=== PATIENT | female | born 1975 | race Caucasian/White ===

== ENCOUNTER 2021-01-20 15:32 | Emergency (ER) | payer OTHER, SELFPAY ==
[2021-01-20 16:00] VITALS: BP 148/81; PULSE 82; RESP 16; TEMP 36.2; O2SAT 98; BMI 23.3
--- NOTE | 2021-01-20 16:02 | PC.NURSE ---
called for patient in waiting area and she is not in there
--- NOTE | 2021-01-20 16:18 | ED_ITS ---
HPI - Headache General: Chief Complaint: Headache Stated Complaint: Migraine, Nausea Time Seen by Provider: 01/20/21 15:59 History of Present Illness: HPI Narrative: Patient states he was seen at [facility] on Monday and Monday tested twice for Covid because she had a low- grade fever during week. Patient says she had a headache and was nauseated. Then she went to their clinic and was given Zofran and another shot yesterday most likely Toradol which made her headache go away for 3 hours. Then patient is back with migraine type headache again. Patient states she had migraines when she was younger for age 17 but not had them since. Denies any imbalance dizziness or neurological problems. MD elicited complaint: headache Pertinent past history: migraines Onset (ago): day(s) Onset description: gradually Location: frontal and temporal Severity: mild Quality & Timing: aching Exacerbating factors: light and noise Associated symptoms: Reports nausea, photophobia and sound sensitivity; Deny chest pain, fever(s) or rash Review of Systems Const: Denies: fever(s), chills or body aches Eyes: Denies: change in vision or blurry vision ENMT: Denies: throat pain or nasal congestion Card: Denies: chest pain or dyspnea on exertion Resp: Denies: dyspnea, productive cough or non-productive cough GI: Reports: nausea Musc: Denies: extremity pain Skin/Breast: Denies: rash Neuro: Reports: headache(s) Psych: Denies: anxiety or depression Francisco/Lymph: Denies: easy bruising Physical Exam Const: COMMON NORMALS: no acute distress and patient oriented x3 Eye: DIRECT OPHTHALMOSCOPY: Yes photophobia Neuro: COMMON NORMALS: patient oriented x3 Psych: COMMON NORMALS: mental status grossly normal Course Vital Signs: Vital signs: Vital Signs Temperature 97.1 F L 01/20/21 16:00 Pulse Rate 75 01/20/21 17:05 Respiratory Rate 16 01/20/21 17:05 Blood Pressure 127/74 01/20/21 17:05 Pulse Oximetry 95 01/20/21 17:05 MDM - Headache MDM Narrative: Medical decision making narrative: Patient responded very well to Imitrex. Patient encouraged to establish with primary care provider and go over why these migraines are starting to happen. Also pursue further testing if desired. Patient agreeable to plan. Discharge Plan Discharge Patient Disposition: Home Clinical Impression: Migraine Qualifiers: Migraine type: without aura Status migrainosus presence: without status migrainosus Intractability: intractable Qualified Code(s): G43.019 - Migraine without aura, intractable, without status migrainosus Condition: Stable Prescriptions: New Imitrex 50 mg tablet 50 mg PO Q2H PRN (Reason: migraine headache) Qty: 7 RF: 0 Discharge Orders: Discharge ED (Routine); Ordered 01/20/21 Ordered By: Ildefonso Astudillo Referrals: Torito Mathis DO [Primary Care Provider] - Discharge Diet: Usual diet Discharge Activity: Increase activity as tolerated Patient Instructions: Migraine Headache (ED) Activity Restrictions/Additional Instructions: Follow-up with medical provider as directed. Take medications as prescribed. Return to the ER or your medical provider if condition worsens. Please read and understand discharge instructions. If any questions ask please. Can take 1 imitrex at start of migraine as needed. Coding Level of Care Code ED [place] Administrator for Otoniel Fwd Exam Expanded Problem Focused
[2021-01-20] MEDS: ondansetron 4 MG Tablet PO (16:35)
[2021-01-20] MEDS: SUMAtriptan 6 mg/0.5 mL SDV SUBCUT (16:35)
[2021-01-20 17:05] VITALS: BP 127/74; PULSE 75; RESP 16; O2SAT 95
== END 2021-01-20 17:09 | disposition home or self-care (01) ==
PROVIDERS: Emergency Provider Nurse Practitioner Family; PCP Internal Medicine
DX: G43.019 Migraine without aura, intractable, without status migrainosus (principal)
CPT/HCPCS: 96372; 99283; J3030; Q0162

== ENCOUNTER 2021-01-21 10:49 | Emergency (ER) | payer OTHER, SELFPAY ==
[2021-01-21 11:12] VITALS: BP 144/88; PULSE 77; RESP 15; TEMP 37.2; O2SAT 98; BMI 23.3
--- NOTE | 2021-01-21 11:16 | CT_ITS ---
WS: [id number] CT scan of the head, 01/21/2021 Clinical Data: ongoing h/a not responding to tx Comparison: CT head, 04/23/2010. DLP: 802.[address] scans at [facility] use at least one of these dose optimization techniques: automat ed exposure control; mA and/or kV adjustment per patient size (includes targeted exams where dose is matched to clinical indication); or iterative reconstruction. Findings: The ventricular system is normal without shift. No recent infarct or hemorrhage is seen. There are no abnormal intracerebral masses. The cerebellum and brainstem are not remarkable. Bony windows of the skull and skull base show no fractures or erosions. The mastoid air cells, intern brand al auditory canals, sella turcica, intraorbital contents, and paranasal sinuses are unremarkable. CT/CT head wo con* [id number] Impression: Negative CT scan of the head
[2021-01-21 11:20] VITALS: BP 135/83; PULSE 76; RESP 16; O2SAT 97
--- NOTE | 2021-01-21 11:35 | ED_ITS ---
HPI - Headache General: Chief Complaint: Headache Stated Complaint: migraine Time Seen by Provider: 01/21/21 11:06 History of Present Illness: HPI Narrative: Patient states headache came back this morning. Patient not get prescription filled yesterday. Patient does have some nausea with this. MD elicited complaint: headache Pertinent past history: migraines Onset (ago): hour(s) Onset description: gradually Location: frontal and temporal Severity: mild Associated symptoms: Reports nausea and photophobia; Deny chest pain, fever(s), neck stiffness (Neck tightness) or rash Review of Systems Const: Denies: fever(s), chills or body aches Eyes: Denies: change in vision or blurry vision ENMT: Denies: throat pain or nasal congestion Card: Denies: chest pain or dyspnea on exertion Resp: Denies: dyspnea, productive cough or non-productive cough GI: Reports: nausea Musc: Denies: extremity pain Skin/Breast: Denies: rash Neuro: Reports: headache(s) Psych: Denies: anxiety or depression Francisco/Lymph: Denies: easy bruising Physical Exam Const: COMMON NORMALS: no acute distress, average body habitus and patient oriented x3 HENMT: COMMON NORMALS: normocephalic HEAD & SCALP: normal to inspection and normocephalic FACE & SINUS: normal facial exam Eye: COMMON NORMALS: conjunctivae normal GENERAL EYE: appearance normal, both eyes and all related structures CONJUNCTIVA: Yes conjunctivae normal DIRECT OPHTHALMOSCOPY: Yes photophobia Neck/C-Spine: COMMON NORMALS: no JVD Chest: COMMONS NORMALS: normal inspection of the chest Resp: COMMON NORMALS: normal respiratory effort and clear to auscultation bilaterally AUSCULTATION: clear to auscultation bilaterally Cardio: COMMON NORMALS: no JVD, regular rate and regular rhythm RATE: regular rate RHYTHM: regular rhythm GI: COMMON NORMALS: Normal to inspection, nondistended, normoactive bowel sounds present Extremity: COMMON NORMALS: normal to inspection and full ROM Neuro: COMMON NORMALS: patient oriented x3 Course Vital Signs: Vital signs: Vital Signs Temperature 99 F 01/21/21 11:12 Pulse Rate 76 01/21/21 11:20 Respiratory Rate 16 01/21/21 11:20 Blood Pressure 135/83 01/21/21 11:20 Pulse Oximetry 97 01/21/21 11:20 Discharge Plan Discharge Prescriptions: No Action Imitrex 50 mg tablet 50 mg PO Q2H PRN (Reason: migraine headache) Qty: 7 RF: 0 Coding Level of Care Code ED Supervisor Contact And Service Clerks for Otoniel Ventura
[2021-01-21] MEDS: ondansetron 4 MG Tablet PO (11:40)
[2021-01-21 11:43] LABS: Basophils % 0.6 %; Eosinophils # 0.2 10^3/uL (0.0-0.8); Eosinophils % 2.5 %; Hematocrit 42.6 % (37.0-47.0); Lymphocytes # 0.9 10^3/uL (0.8-4.8); Lymphocytes % 13.6 %; Mean Corpuscular HGB Conc 32.9 g/dL (30.0-36.0); Mean Corpuscular Hemoglobin 28.6 pg (28.0-34.0); Mean Corpuscular Volume 86.9 fL (81-99); Monocytes # 0.6 10^3/uL (0.2-0.9); Monocytes % 9.8 %; Neutrophils # 4.78 10^3/uL (1.8-7.7); Neutrophils % 73.2 %; Nucleated Red Blood Cells % 0 %; Platelet Count 315 10^3/cmm (130-400); Red Cell Distribution Width 12.7 % (12.1-15.1); White Blood Count 6.5 10^3/uL (4.0-10.0)
[2021-01-21 12:02] LABS: Alanine Aminotransferase 18 U/L (0-33); Albumin Level 4.4 g/dL (3.5-5.2); Alkaline Phosphatase 57 IU/L (35-105); Anion Gap 12.3 (5-19); Aspartate Amino Transferase 15 U/L (0-32); Blood Urea Nitrogen 9 mg/dL (6-20); Calcium 9.1 mg/dL (8.5-10.5); Carbon Dioxide 28 mmol/L (22-29); Chloride 102 mmol/L (98-107); Globulin 2.5 g/dL (1.3-4.6); Glomerular Filtration Rate 107.6 mL/min (90-130); Glucose 86 mg/dL (65-115); Osmolality Calculated 284 mOsm/kg (285-295); Potassium 4.3 mmol/L (3.5-5.1); Sodium 138 mmol/L (136-145); Total Bilirubin 0.3 mg/dL (0.15-1.2); Total Protein 6.9 g/dL (6.6-8.7)
[2021-01-21] MEDS: SUMAtriptan 25 mg Tablet 50 MG PO (12:07)
[2021-01-21 12:10] LABS: Add Urine Culture? No; Add Urine Microscopic? YES; Bacteria Urine TRACE /hpf; Bilirubin Urine Neg (Negative); Blood Urine Neg (Negative); Glucose Urine UA Norm (Normal); Ketones Urine Negative (Negative); Leukocyte Esterase Urine Negative (Negative); Mucus Urine TRACE /hpf; Nitrate Urine Negative (Negative); Protein Urine Neg (Negative); Squamous Epithelial Cell Urine 0-4 /hpf (0-5); Urine Appearance SL Hazy (CLEAR); Urine Color Yellow (Yellow); Urobilinogen Urine Neg (Negative); pH Urine 7 (5-7)
[2021-01-21 12:49] VITALS: BP 123/80; PULSE 67; RESP 16; O2SAT 98
== END 2021-01-21 12:51 | disposition home or self-care (01) ==
PROVIDERS: Emergency Provider Nurse Practitioner Family; PCP Internal Medicine
DX: G43.909 Migraine, unspecified, not intractable, without status migrainosus (principal)
CPT/HCPCS: 70450; 80053; 81001; 85025; 99283; Q0162

== ENCOUNTER 2021-01-25 16:33 | Emergency (ER) | payer OTHER, SELFPAY ==
[2021-01-25 16:38] VITALS: PULSE 83; RESP 18; TEMP 36.9; O2SAT 97; BMI 23.2
--- NOTE | 2021-01-25 17:11 | ED_ITS ---
HPI - Headache General: Chief Complaint: Headache Stated Complaint: SEVERE HEADACHE, NUMBNESS, DEHYDRATION Time Seen by Provider: 01/25/21 17:08 History of Present Illness: HPI Narrative: Patient is a 45-year-old female comes to the ED with a headache. Patient was seen here in the ED for same complaint on January 20 and January 21 and diagnosed with a migraine. Patient had a head CT scan on January 21 that showed no acute findings. Today patient continued to have a migraine that she rates currently a 5 out of 10. It is located behind the eyes bilaterally. She has nausea and photophobia. She states she is hardly had any thing to eat or drink today due to the nausea. She also endorses having some right arm numbness and tingling along with slurred speech that occurred prior to arrival to the ED. She says those symptoms have now completely resolved upon arrival. patient has taken sumatriptan and butalbital-acetaminophen caffeine tab and that has not helped either. Patient says her last migraine before this recent onset was back when she was a teenager. Patient does report having 2 recent tick bites and and her PCP she had a tick panel lab performed and it is pending. She is not currently on any doxycycline. Associated symptoms: Reports nausea; Deny chest pain, fever(s), rash or vomiting Review of Systems Const: Denies: fever(s), chills or fatigue Eyes: Reports: photophobia; Denies: change in vision or eye discomfort ENMT: Denies: throat pain, odynophagia, nasal discharge or nasal congestion Card: Denies: chest pain, palpitations, edema, swelling of feet/ankles, dyspnea on exertion or orthopnea Resp: Denies: dyspnea, productive cough or non-productive cough GI: Reports: nausea; Denies: abdominal pain, vomiting, diarrhea, constipation or hematochezia : Denies: flank pain, dysuria or hematuria Musc: Denies: neck pain, back pain or extremity swelling Skin/Breast: Reports: new lesions (Multiple tick bites over the last 2 weeks.); Denies: rash Neuro: Reports: headache(s); Denies: numbness in extremities or weakness in extremities [facility] ED Female Reproductive History: Date of last menstrual period: 01/16/21 Physical Exam Const: COMMON NORMALS: no acute distress, patient oriented x3, healthy appearing and alert GENERAL APPEARANCE: cooperative and comfortable HENMT: COMMON NORMALS: normocephalic HEAD & SCALP: normocephalic MOUTH: Normal oral and palatal mucosa present THROAT: posterior oropharynx normal and uvula midline Neck/C-Spine: COMMON NORMALS: supple GENERAL: Yes normal visual inspection Resp: COMMON NORMALS: normal respiratory effort, No retractions, No use of accessory muscles and clear to auscultation bilaterally AUSCULTATION: clear to auscultation bilaterally Cardio: COMMON NORMALS: regular rate, regular rhythm, S1 normal heart sound present, S2 normal heart sound present, No gallops present (Cardio), No clicks present (Cardio), No murmurs present (Cardio) and Peripheral pulses 2+ throughout RATE: regular rate RHYTHM: regular rhythm HEART SOUNDS: S1 normal heart sound present and S2 normal heart sound present PERIPHERAL PULSES: Peripheral pulses 2+ throughout GI: COMMON NORMALS: Normal to inspection, nondistended, normoactive bowel sounds present, Soft to palpation, non-tender and no masses PALPATION: Yes Soft to palpation : COMMON NORMALS: Yes no CVA tenderness BLADDER/KIDNEY EXAM: Yes no CVA tenderness Back/Pelvis: COMMON NORMALS: no CVA tenderness Extremity: COMMON NORMALS: normal to inspection Neuro: COMMON NORMALS: patient oriented x3, CN's II-XII intact bilaterally, moves all extremities, no focal motor deficits and no sensory deficits noted SENSORIUM/ORIENTATION: Yes alert SENSORY EXAM: Yes extremities (intact) MOTOR EXAM: 5/5 motor strength present throughout Skin: GENERAL SKIN EXAM: dry skin Course ED course: After patient received IV fluids and migraine cocktail her migraine was rated a 1 out of 10. Patient felt comfortable and ready to be discharged home. Vital Signs: Vital signs: Vital Signs Temperature 98.4 F 01/25/21 16:38 Pulse Rate 71 01/25/21 18:59 Respiratory Rate 18 01/25/21 18:59 Blood Pressure 139/79 01/25/21 18:59 Pulse Oximetry 97 01/25/21 16:38 MDM - Headache MDM Narrative: Medical decision making narrative: Patient is a 45-year-old female comes to the ED with migraine. She has been seen here multiple times over the past 5 days for same complaint. Today she is had a headache along with photophobia, nausea and states she has had an episode of right arm numbness and tingling and some slurred speech that resolved before coming to the ED. patient also reports having some recent tick bites and her PCP did a tick panel but she is not currently on doxycycline. Here in the ED patient appears nontoxic and in no acute distress or pain. Her neurological exam shows no deficits. CT of head showed no acute findings. Patient was given IV fluids, Reglan, Toradol, Decadron and Benadryl and her migraine improved greatly. Due to her recurring migraine over the past 5 days I told patient I would place an order with case management for patient to be referred to neurology. Patient diagnosed with a migraine and tick bite and discharged home with a prescription for doxycycline. Return to ED precautions given. Patient was told child support case officer will contact them in a couple days to set up an appointment with neurology. Patient understood and agreed with plan. Imaging Data^: CT Head: Attestation: I personally reviewed and interpreted this imaging study as follows: Radiologist's impression: [place] [address] CT Scan Report Signed Patient: Tabitha Schaffer Unit #: [id number] : 1975 Age/Sex: 45 / F ADM Date: 01/25/21 Loc: ER Room/Bed: Attending Dr: Ordering Provider/Ordering MD: Mic Strickland Date of Service: 01/25/21 Procedure(s): CT head wo con* [id number] Accession Number(s): [id number] Report Number: [id number] PROCEDURE INFORMATION: Exam: CT Head Without Contrast Exam date and time: 01/25/2021 5:27 PM Age: 45 years old Clinical indication: Pain; Speech disturbance; Headache; Additional info: Migraine, with episode of right arm numb, slurred speech TECHNIQUE: Imaging protocol: Computed tomography of the head without contrast. Radiation optimization: All CT scans at this facility use at least one of these dose optimization techniques: automated exposure control; mA and/or kV adjustment per patient size (includes targeted exams where dose is matched to clinical indication); or iterative reconstruction. COMPARISON: CT head wo con* [id number] 01/21/2021 11:57 AM RADIATION DOSE METRICS: Total DLP (mGy-cm): 766.93 FINDINGS: Brain: Normal. No hemorrhage. Unremarkable white matter. No mass effect. Cerebral ventricles: No ventriculomegaly. Paranasal sinuses: Visualized sinuses are unremarkable. No fluid levels. Mastoid air cells: Visualized mastoid air cells are well aerated. Bones/joints: Unremarkable. No acute fracture. Soft tissues: Unremarkable. CT/CT head wo con* [id number] IMPRESSION: No acute intracranial abnormality. Radiation Dose CTDIVOL = (mGy): DLP = 766.93 (mGy-cm) Dictated By: Hakeem Paulino Signed By: Hakeem Paulino Signed Date/Time: 01/25/211817 DD/ 17 Discharge Plan Discharge Patient Disposition: Home Clinical Impression: Migraine Qualifiers: Migraine type: without aura Status migrainosus presence: with status migrainosus Intractability: not intractable Qualified Code(s): G43.001 - Migraine without aura, not intractable, with status migrainosus Tick bite Qualifiers: Encounter type: subsequent encounter Qualified Code(s): W57.XXXD - Bitten or stung by nonvenomous insect and other nonvenomous arthropods, subsequent encounter Condition: Stable Prescriptions: New metoclopramide HCl 10 mg tablet 10 mg PO Q6H PRN (Reason: nausea and vomiting) Qty: 20 RF: 0 doxycycline hyclate 100 mg capsule 100 mg PO BID 10 Days Qty: 20 RF: 0 No Action sumatriptan succinate 100 mg tablet 50 - 100 mg PO .ONSET OF MIGRAINE MDD 200MG RF: 0 ubdfixuieq-mezaeyapzwtjn-dgef 50-325-40 mg tablet 1 tab PO Q6H PRN (Reason: Migraine Headache) RF: 0 naproxen sodium 220 mg Tablet 440 mg PO PRN PRN (Reason: UNKNOWN) RF: 0 ibuprofen 200 mg Tablet 400 mg PO PRN RF: 0 propranolol 20 mg tablet 20 mg PO BID RF: 0 Aleve PM 220-25 mg Tablet 2 tab PO PRN PRN (Reason: UNKNOWN) RF: 0 Motrin Liquid Gels 2 cap PO PRN RF: 0 ondansetron HCl 4 mg tablet 4 mg PO Q8H PRN (Reason: Nausea And Vomiting) RF: 0 albuterol sulfate 90 mcg/actuation HFA aerosol inhaler 1 - 2 puff INHALATION Q4H PRN (Reason: Shortness Of Breath) RF: 0 Discharge Orders: Discharge ED (Routine); Ordered 01/25/21 Ordered By: Mic Strickland Referrals: Torito Mathis, [Primary Care Provider] - Discharge Diet: Regular Discharge Activity: Resume usual activity Patient Instructions: Migraine Headache (ED) Activity Restrictions/Additional Instructions: Follow-up with medical provider as directed in 7 to 10 days reevaluation. Case management will be contacting you in the next several days to set up an appointment with neurologist. Take your previously prescribed migraine meds as needed. Take the prescribed metoclopramide med as needed for any nausea. Return to the ER or your medical provider if condition worsens. Please read and understand discharge instructions. Thank you for choosing [facility] for your healthcare needs today. Please realize this is an emergency room and that we are providing you with a medical screening exam and this may not be complete and all inclusive of all the testing and or work up that you may need to determine your ailment or severity of your illness. It is very important that you follow up as instructed or that you return to the Emergency Department should you have concerns or if your condition changes or worsens in any way. Coding Level of Care Code ED Property Field Adjuster for Otoniel Fwcharles Exam Comprehensive
--- NOTE | 2021-01-25 17:27 | CTR_ITS ---
PROCEDURE INFORMATION: Exam: CT Head Without Contrast Exam date and time: 01/25/2021 5:27 PM Age: 45 years old Clinical indication: Pain; Speech disturbance; Headache; Additional info: Migraine, with episode of right arm numb, slurred speech TECHNIQUE: Imaging protocol: Computed tomography of the head without contrast. Radiation optimization: All CT scans at this facility use at least one of these dose optimization techniques: automated exposure control; mA and/or kV adjustment per patient size (includes targeted exams where dose is matched to clinical indication); or iterative reconstruction. COMPARISON: CT head wo con* [id number] 01/21/2021 11:57 AM RADIATION DOSE METRICS: Total DLP (mGy-cm): 766.93 FINDINGS: Brain: Normal. No hemorrhage. Unremarkable white matter. No mass effect. Cerebral ventricles: No ventriculomegaly. Paranasal sinuses: Visualized sinuses are unremarkable. No fluid levels. Mastoid air cells: Visualized mastoid air cells are well aerated. Bones/joints: Unremarkable. No acute fracture. Soft tissues: Unremarkable. CT/CT head wo con* [id number] IMPRESSION: No acute intracranial abnormality. Radiation Dose CTDIVOL = (mGy): DLP = 766.93 (mGy-cm)
--- NOTE | 2021-01-25 17:28 | PC.PHAR ---
PT STATES SHE TAKES CARE OF HER OWN MEDICATIONS-PT STATES SHE TAKES THE MOTRIN LIQUID GELS AND IBUPROFEN PRN-PT STATES SHE JUST PICKED UP AN RX FOR PROPRANOLOL AND HASNT STARTED TAKING YET-EXT MED HISTORY SHOWS NURTEC ODT 75MG FILLED ON 01/19/21 FOR 1- SUN AT [facility] STATES THEY NEVER FILLED THAT RX-
[2021-01-25] MEDS: diphenhydrAMINE 50 mg/mL SDV 1mL 25 MG IVP (17:38)
[2021-01-25] MEDS: dexamethasone 10 mg/mL INJ IVP (17:38)
[2021-01-25] MEDS: ketorolac 30 mg/mL INJ IVP (17:38)
[2021-01-25] MEDS: sodium chloride 0.9% 1,000 ML 999 ML IV (17:40)
[2021-01-25] MEDS: metoclopramide 5 mg/mL SDV 2 mL 10 MG IVP (17:40)
[2021-01-25 18:59] VITALS: BP 139/79; PULSE 71; RESP 18
--- NOTE | 2021-01-25 19:00 | PC.NURSE ---
patient IV dc'd intact
--- NOTE | 2021-01-26 09:34 | DCPLANNER ---
Addendum entered by Kiah Sidhu 01/27/21 14:19: Clinic is trying to reach patient to schedule appointment. Original Note: manager trade marketing had message to schedule a follow up appointment for patient with neurology. manager trade marketing emailed patients information to the neurology clinic. Patients information will be printed and reviewed. Clinic will call patient with appointment information.
== END 2021-01-25 19:00 | disposition home or self-care (01) ==
PROVIDERS: Emergency Provider Physician Assistant; PCP Internal Medicine
DX: G43.001 Migraine without aura, not intractable, with status migrainosus (principal); T14.8XXA Other injury of unspecified body region, initial encounter; W57.XXXA Bitten or stung by nonvenomous insect and other nonvenomous arthropods, initial encounter
CPT/HCPCS: 70450; 96361; 96374; 96375; 99284; J1100; J1200; J1885; J2765; J7030

== ENCOUNTER 2021-01-26 09:42 | Observation (INO) | payer OTHER, SELFPAY ==
[2021-01-26] VITALS (10 sets, daily range): BP systolic 99–144; BP diastolic 61–89; PULSE 64–94; RESP 16–28; TEMP 36.4–37; O2SAT 93–99; BMI 23.2; BMI 23.3
--- NOTE | 2021-01-26 | CT_ITS ---
WS: [id number] CT ABDOMEN AND PELVIS WITH CONTRAST HISTORY: ABD PAIN AND TENDERNESS TECHNIQUE: Imaging performed of the abdomen and pelvis with IV contrast. Single phase imaging of the abdomen. Coronal and sagittal reformats are submitted. All CT scans at [facility] use at least one of these dose optimization techniques: automated exposure control; mA and/or kV adjustment per patient size (includes targeted exams where dose is matched to clinical indication); or iterativ e reconstruction. IV CONTRAST: Omnipaque 300; 95 mL IV. Oral contrast: No DLP: 1278.97 mGy.cm COMPARISON: None available. Lower thorax: Lung bases are clear. Heart is normal size. No hiatal hernia. Liver/biliary system: Normal size with no intrahepatic dilatation. Gallbladder: Normal. No gallstones or wall thickening. No pericholecystic fluid. Pancreas: Normal size pancreas and pancreatic duct. No adjacent inflammation. Spleen: Normal size spleen. No mass or infarct. Adrenal glands: Normal. Right kidney: Normal size RIGHT kidney. Moderate hydroureteronephrosis. Ureter is tortuous and dilate d. Obstruction secondary to a large pelvic mass to the pelvic brim. Left kidney: Normal. Aorta: Normal size aorta. Mild compression upon the aorta and large pelvic mass arising into the abdo men. Lymphadenopathy: None. Free fluid: None. GI tract: No GI tract obstruction. Loops of the GI tract are being displaced laterally by the large p elvic mass. The appendix is not identified. Abdominal wall: Unremarkable abdominal wall. No hernia. Pelvis: There is a large solid mass with a few cystic changes and calcifications arising from the pel vis and extending into the abdomen. This mass extends over a length of 16.0 cm and transversely by 20 .0 cm and anterior posterior by 10.0 cm. Variable density throughout the mass. There is mass effect a nd compression upon the aorta and the GI tract. Mass is inseparable from the uterus but the uterus ap pears to be displaced to the LEFT of midline. Favor this is probably a large RIGHT ovarian mass. LEFT ovary is not definitely identified. Marked dilatation of the RIGHT pelvic veins with adjacent nodula rity of low attenuation. This may be complex fluid or omental neoplastic disease. Cannot exclude a sm all amount of omental thickening and caking along the RIGHT dilated pelvic venous complex. Bones: Unremarkable. CT/CT abdomen pelvis w con* [id number] IMPRESSION: 1. Large heterogeneous mass arising from the pelvis measures 20.0 cm transvers aria x 10.0 cm AP x 16.0 cm superior inferior. Favor this is probably arising fr om the RIGHT ovary. Malignancy is not excluded. 2. Moderate RIGHT hydroureteronephrosis secondary to a large pelvic mass causi ng obstruction at the pelvic brim. 3. Dilated tortuous RIGHT pelvic varicosities with fluid or soft tissue nodula rity. Small amount of omental thickening is not excluded. This could be neoplas tic or edema. 4. No adrenal mass. 5. No significant amount of ascites. Notified Byron Miles DO at 01/26/2021 11:51 AM.
--- NOTE | 2021-01-26 09:49 | ECG_ITS ---
[facility] Test Date: 2021-01-26 Pat Name: Tabitha Schaffer Department: Room: Gender: Female Criminal Profiler: : 1975 Requested By: Byron Holguin Order Number: [id number] MD: Urmila Feldman M.D. Measurements Intervals [place] Rate: 71 P: 69 [place]: 152 QRS: 64 QRSD: 83 T: 54 QT: 398 QTc: 433 Interpretive Statements SINUS RHYTHM No previous ECG available for comparison Electronically Signed On 01-26-2021 16:12:02 CDT by Urmila Feldman M.D. [id number]
--- NOTE | 2021-01-26 09:49 | CT_ITS ---
WS: [id number] CT HEAD NONCONTRAST HISTORY: altered mental status TECHNIQUE: Contiguous axial imaging performed through the brain in 2.5 mm imaging. Bone and soft tiss ue windows. Sagittal and coronal reformats reviewed. All CT scans at [facility] use at ast one of these dose optimization techniques: automated exposure control; mA and/or kV adjustment pe r patient size (includes targeted exams where dose is matched to clinical indication); or iterative r econstruction. DLP: 1771.86 mGy.cm COMPARISON: 01/25/2021 No acute intracranial hemorrhage, midline shift or mass effect. No atrophy or prior infarcts or herniation. Ventricles: Normal size with no hydrocephalus. Paranasal sinuses: As visualized are clear. Mastoid air cells: Well pneumatized. Calvarium and scalp: Skull is intact with no soft tissue edema or swelling. CT/CT head wo con* [id number] IMPRESSION: Negative head CT.
--- NOTE | 2021-01-26 09:59 | W.ED.AMS ---
HPI - Altered Mental Status General: Chief Complaint: Altered Mental Status Stated Complaint: AMS Time Seen by Provider: 01/26/21 09:44 History of Present Illness: HPI narrative: 45-year-old female presents emergency room with complaints of headache and confusion. She been seen multiple times last couple of days for headache she was given Imitrex took most of the pills within a 24-hour period 6 to 8 pills total. She was seen earlier this morning at [facility] and then was at [facility] urgent care clinic she was trying to urinate into trash can at [facility]. She denies any fever sweats chills cough or shortness of breath she complains of headache pain refers to the frontal area bilaterally denies visual changes. He also took an cyez-guz-nesbziy migraine medication with aspirin and caffeine in it this morning. MD complaint: confusion and weakness Onset (ago): hour(s) Severity: moderate Consistency of symptoms: Waxing and Waning Associated symptoms: Deny auditory hallucinations, visual hallucinations, delusions, depression, homicidal ideation, racing thoughts or suicidal ideation Review of Systems Const: Denies: fever(s), chills, body aches, change in appetite, fatigue or malaise ENMT: Denies: throat pain, ear or mastoid pain, nasal discharge or nasal congestion Card: Denies: chest pain, edema, dyspnea on exertion or orthopnea Resp: Denies: dyspnea, productive cough or non-productive cough GI: Denies: abdominal pain, nausea, vomiting, hematemesis, coffee ground emesis, diarrhea, constipation, bloating, hematochezia or melena : Denies: flank pain, difficulty voiding, dysuria, urinary frequency or urinary urgency Skin/Breast: Denies: rash or pruritus Psych: Denies: depression, visual hallucinations, auditory hallucinations, suicidal ideation or homicidal ideation [facility] Female Reproductive History: Date of last menstrual period: 01/16/21 Physical Exam Const: COMMON NORMALS: no acute distress GENERAL APPEARANCE: cooperative and comfortable ORIENTATION/CONSCIOUSNESS: Yes awake HENMT: COMMON NORMALS: normocephalic, atraumatic, hearing grossly normal bilaterally, external ears normal, EAC's normal, TM's normal bilaterally, Normal nasal mucous membranes and turbinates present, moist oral mucous membranes and oropharynx normal HEAD & SCALP: normocephalic and atraumatic NOSE: Normal nasal mucous membranes and turbinates present EXTERNAL EAR: Yes external ears normal EXTERNAL AUDITORY CANAL: EAC's normal TYMPANIC MEMBRANE: TM's normal bilaterally Eye: COMMON NORMALS: Equal, round and reactive pupils present, EOMs intact bilaterally, conjunctivae normal and no scleral icterus CONJUNCTIVA: Yes conjunctivae normal PUPIL: Yes Equal, round and reactive pupils present Neck/C-Spine: COMMON NORMALS: full ROM, no lymphadenopathy, supple and no JVD Lymph: LYMPHATIC: no lymphadenopathy noted and no lymphedema noted Resp: COMMON NORMALS: normal respiratory effort, No retractions, No use of accessory muscles and clear to auscultation bilaterally AUSCULTATION: clear to auscultation bilaterally Cardio: COMMON NORMALS: no JVD, regular rate, regular rhythm and No murmurs present (Cardio) RATE: regular rate RHYTHM: regular rhythm GI: COMMON NORMALS: No hepatosplenomegaly present AUSCULTATION: Yes normoactive bowel sounds PALPATION: No Tenderness to palpation present (GI), No Guarding due to palpation present (GI), Yes No hepatosplenomegaly present and Yes Palpable mass present (1 mass extending to 2 to 3 fingerbreadths below the umbilicus) suprapubic fixed and firm Extremity: COMMON NORMALS: normal to inspection, capillary refill normal, no clubbing, cyanosis or edema, no calf tenderness and no pedal edema Psych: THOUGHT CONTENT: No delusions Skin: COMMON NORMALS: no rashes or lesions noted GENERAL SKIN EXAM: no rashes or lesions noted Course Vital Signs: Vital signs: Vital Signs Temperature 97.7 F 01/26/21 09:44 Pulse Rate 67 01/26/21 12:31 Respiratory Rate 28 H 01/26/21 12:31 Blood Pressure 121/89 01/26/21 11:23 Pulse Oximetry 98 01/26/21 12:31 MDM - Altered Mental Status MDM Narrative: Medical decision making narrative: Reviewed labs and imaging findings with the patient and her . Also reviewed on the chart. We will go ahead and admit her she still has some altered mental status I think is largely due to the medication she took prior to coming here. She got medications of [facility] as well as that there while she was at the clinic there evidently. She also took large amount of sumatriptan and her urine drug screen is positive for barbiturates. Her headache is somewhat improved. Her headache were to persist she may need an MRI to check for more subtle changes related to the right ovarian mass. Discussed with him that the ovarian mass will need work-up and she should probably be referred to a oncologic gynecology service. Lab Data: Labs: Lab Results 01/26/21 01/26/21 01/26/21 Range/Units 09:59 10:02 10:02 WBC (4.0-10.0) 10^3/ uL RBC (4.1-5.3) 10^6/u L Hgb (11.5-15.3) g/dL Hct (37.0-47.0) % MCV (81-99) fl MCH (28.0-34.0) pg MCHC (30.0-36.0) g/dL RDW (12.1-15.1) % Plt Count (130-400) 10^3/c mm MPV (7.4-10.4) fL Neut % (Auto) % Lymph % (Auto) % Cherry % (Auto) % Eos % (Auto) % Baso % (Auto) % Neut # (Auto) (1.8-7.7) 10^3/u L Lymph # (Auto) (0.8-4.8) 10^3/u L Cherry # (Auto) (0.2-0.9) 10^3/u L Eos # (Auto) (0.0-0.8) 10^3/u L Baso # (Auto) (0.0-0.1) 10^3/u L Nucleated RBC % (a uto) % Nucleated RBCs # /100WBC Specimen Type Arterial Sample Site Radial, left ABG pH 7.46 H (7.35-7.45) ABG pCO2 31.3 L (35-45) mmHg ABG pO2 80.4 (80.0-100.0) mmH g ABG HCO3 22.4 (22-26) mmol/L ABG O2 Saturation 97.5 ABG Base Excess -0.5 (-2.0-2.0) mmol/ L Dank Test Pos A-a O2 Gradient 3.8 L (5-10) mmHg Hematocrit 42.0 (37-47) % Hgb O2 Saturation 95.9 (95-100) % Carboxyhemoglobin 0.8 (0.4-20.1) %THgb Methemoglobin 0.8 (0.4-1.5) % Total Hemoglobin 13.7 (12-16) g/dL Sodium 137.0 (131-143) mmol/L Potassium 3.7 (3.5-5.0) mmol/L Glucose 126.0 H (70-115) mg/dL Ionized Calcium 1.2 (1.1-1.4) mmol/L O2 Delivery Device Room air FiO2 21.0 % Supervisor [employer] Sanitation ID Cak Chloride Carbon Dioxide Anion Gap BUN Creatinine GFR Calculation Calculated Osmolal ity Lactic Acid Calcium Total Bilirubin AST ALT Alkaline Phosphata se Creatine Kinase Total Protein Albumin Globulin Lipase HCG, Qual Negative (Negative) Urine Color (Yellow) Urine Appearance (CLEAR) Urine pH (5-7) Ur Specific Gravit y (1.005-1.030) Urine Protein (Negative) Urine Glucose (UA) (Normal) Urine Ketones (Negative) Urine Blood (Negative) Urine Nitrate (Negative) Urine Bilirubin (Negative) Prot Sulfosalicyli c Acd (Negative) Urine Urobilinogen (Negative) mg/dL Ur Leukocyte Maria D ase (Negative) Urine Opiates Scre en Negative (Negative) ng/mL Ur Barbiturates Sc reen Positive H (Negative) ng/mL Ur Phencyclidine S crn Negative (Negative) ng/mL Ur Amphetamines Sc reen Negative (Negative) ng/mL U Benzodiazepines Scrn Negative (Negative) ng/mL Urine Cocaine Scre en Negative (Negative) ng/mL U Marijuana (THC) Screen Negative (Negative) ng/mL 01/26/21 01/26/21 01/26/21 Range/Units 10:02 10:08 10:08 WBC 13.8 H (4.0-10.0) 10^3/ uL RBC 4.98 (4.1-5.3) 10^6/u L Hgb 14.3 (11.5-15.3) g/dL Hct 43.1 (37.0-47.0) % MCV 86.5 (81-99) fl MCH 28.7 (28.0-34.0) pg MCHC 33.2 (30.0-36.0) g/dL RDW 13.5 (12.1-15.1) % Plt Count 290 (130-400) 10^3/c mm MPV 9.3 (7.4-10.4) fL Neut % (Auto) 88.3 % Lymph % (Auto) 5.6 % Cherry % (Auto) 5.6 % Eos % (Auto) 0.1 % Baso % (Auto) 0.1 % Neut # (Auto) 12.20 H (1.8-7.7) 10^3/u L Lymph # (Auto) 0.8 (0.8-4.8) 10^3/u L Cherry # (Auto) 0.8 (0.2-0.9) 10^3/u L Eos # (Auto) 0.0 (0.0-0.8) 10^3/u L Baso # (Auto) 0.0 (0.0-0.1) 10^3/u L Nucleated RBC % (a uto) 0 % Nucleated RBCs # 0.0 /100WBC Specimen Type Sample Site ABG pH (7.35-7.45) ABG pCO2 (35-45) mmHg ABG pO2 (80.0-100.0) mmH g ABG HCO3 (22-26) mmol/L ABG O2 Saturation ABG Base Excess (-2.0-2.0) mmol/ L Dank Test A-a O2 Gradient (5-10) mmHg Hematocrit (37-47) % Hgb O2 Saturation (95-100) % Carboxyhemoglobin (0.4-20.1) %THgb Methemoglobin (0.4-1.5) % Total Hemoglobin (12-16) g/dL Sodium (131-143) mmol/L Potassium (3.5-5.0) mmol/L Glucose (70-115) mg/dL Ionized Calcium (1.1-1.4) mmol/L O2 Delivery Device FiO2 % Supervisor [employer] San[employer] ID Chloride Carbon Dioxide Anion Gap BUN Creatinine GFR Calculation Calculated Osmolal ity Lactic Acid Cancelled Calcium Total Bilirubin AST ALT Alkaline Phosphata se Creatine Kinase Total Protein Albumin Globulin Lipase HCG, Qual (Negative) Urine Color Yellow (Yellow) Urine Appearance Clear (CLEAR) Urine pH 8 H (5-7) Ur Specific Gravit y 1.010 (1.005-1.030) Urine Protein Neg (Negative) Urine Glucose (UA) Norm (Normal) Urine Ketones 2+ H (Negative) Urine Blood Neg (Negative) Urine Nitrate Negative (Negative) Urine Bilirubin Neg (Negative) Prot Sulfosalicyli c Acd Negative (Negative) Urine Urobilinogen Norm (Negative) mg/dL Ur Leukocyte Maria D ase Negative (Negative) Urine Opiates Scre en (Negative) ng/mL Ur Barbiturates Sc reen (Negative) ng/mL Ur Phencyclidine S crn (Negative) ng/mL Ur Amphetamines Sc reen (Negative) ng/mL U Benzodiazepines Scrn (Negative) ng/mL Urine Cocaine Scre en (Negative) ng/mL U Marijuana (THC) Screen (Negative) ng/mL 01/26/21 01/26/21 01/26/21 Range/Units 10:08 11:47 11:47 WBC (4.0-10.0) 10^3/ uL RBC (4.1-5.3) 10^6/u L Hgb (11.5-15.3) g/dL Hct (37.0-47.0) % MCV (81-99) fl MCH (28.0-34.0) pg MCHC (30.0-36.0) g/dL RDW (12.1-15.1) % Plt Count (130-400) 10^3/c mm MPV (7.4-10.4) fL Neut % (Auto) % Lymph % (Auto) % Cherry % (Auto) % Eos % (Auto) % Baso % (Auto) % Neut # (Auto) (1.8-7.7) 10^3/u L Lymph # (Auto) (0.8-4.8) 10^3/u L Cherry # (Auto) (0.2-0.9) 10^3/u L Eos # (Auto) (0.0-0.8) 10^3/u L Baso # (Auto) (0.0-0.1) 10^3/u L Nucleated RBC % (a uto) % Nucleated RBCs # /100WBC Specimen Type Sample Site ABG pH (7.35-7.45) ABG pCO2 (35-45) mmHg ABG pO2 (80.0-100.0) mmH g ABG HCO3 (22-26) mmol/L ABG O2 Saturation ABG Base Excess (-2.0-2.0) mmol/ L Dank Test A-a O2 Gradient (5-10) mmHg Hematocrit (37-47) % Hgb O2 Saturation (95-100) % Carboxyhemoglobin (0.4-20.1) %THgb Methemoglobin (0.4-1.5) % Total Hemoglobin (12-16) g/dL Sodium Cancelled 134 L (131-143) mmol/L Potassium Cancelled 3.8 (3.5-5.0) mmol/L Glucose Cancelled 111 (70-115) mg/dL Ionized Calcium (1.1-1.4) mmol/L O2 Delivery Device FiO2 % Super[employer] ID Chloride Cancelled 102 Carbon Dioxide Cancelled 22 Anion Gap Cancelled 13.8 BUN Cancelled 9 Creatinine Cancelled 0.4 L GFR Calculation Cancelled 171.8 H Calculated Osmolal ity Cancelled 277 L Lactic Acid 1.2 Calcium Cancelled 7.9 L Total Bilirubin Cancelled 0.2 AST Cancelled 8 ALT Cancelled 6 Alkaline Phosphata se Cancelled 50 Creatine Kinase Cancelled 38 Total Protein Cancelled 6.4 L Albumin Cancelled 3.7 Globulin Cancelled 2.7 Lipase Cancelled 10 L HCG, Qual (Negative) Urine Color (Yellow) Urine Appearance (CLEAR) Urine pH (5-7) Ur Specific Gravit y (1.005-1.030) Urine Protein (Negative) Urine Glucose (UA) (Normal) Urine Ketones (Negative) Urine Blood (Negative) Urine Nitrate (Negative) Urine Bilirubin (Negative) Prot Sulfosalicyli c Acd (Negative) Urine Urobilinogen (Negative) mg/dL Ur Leukocyte Maria D ase (Negative) Urine Opiates Scre en (Negative) ng/mL Ur Barbiturates Sc reen (Negative) ng/mL Ur Phencyclidine S crn (Negative) ng/mL Ur Amphetamines Sc reen (Negative) ng/mL U Benzodiazepines Scrn (Negative) ng/mL Urine Cocaine Scre en (Negative) ng/mL U Marijuana (THC) Screen (Negative) ng/mL Discharge Plan Discharge Patient Disposition: Placed in Observation Clinical Impression: Headache, Altered mental status, Ovarian mass, right, Hydronephrosis of right kidney Coding Level of Care Code ED Gasoline Dragline Operator for Chg Fwd Exam Comprehensive
[2021-01-26 10:06] LABS: Add Urine Microscopic? NO; Charge for UA Resulting for Rev
[2021-01-26 10:10] LABS: ABG PCO2 31.3 mmHg (35-45); ABG PH Result 7.46 (7.35-7.45); Alveolar-Arterial Oxygen Gradi 3.8 mmHg (5-10); Base Excess ABG -0.5 mmol/L (-2.0-2.0); Blood Gas Allen Test Pos; Blood Gas Operator Identificat CAK; Blood Gas Sample Site Radial, left; Blood Gas Sample Type Arterial; Carboxyhemoglobin 0.8 %THgb (0.4-20.1); HCO3 ABG 22.4 mmol/L (22-26); HGB O2 Sat 95.9 % (95-100); Ionized Calcium Level - ABG 1.2 mmol/L (1.1-1.4); Methemoglobin 0.8 % (0.4-1.5); Oxygen Device ROOM AIR; Oxygen Saturation ABG 97.5; PO2 ABG 80.4 mmHg (80.0-100.0); Potassium Level - ABG 3.7 mmol/L (3.5-5.0); Total Hemoglobin 13.7 g/dL (12-16)
[2021-01-26 10:14] LABS: Basophils % 0.1 %; Eosinophils % 0.1 %; Hematocrit 43.1 % (37.0-47.0); Hemoglobin 14.3 g/dL (11.5-15.3); Lymphocytes # 0.8 10^3/uL (0.8-4.8); Lymphocytes % 5.6 %; Mean Corpuscular HGB Conc 33.2 g/dL (30.0-36.0); Mean Corpuscular Hemoglobin 28.7 pg (28.0-34.0); Mean Corpuscular Volume 86.5 fl (81-99); Mean Platelet Volume 9.3 fL (7.4-10.4); Monocytes # 0.8 10^3/uL (0.2-0.9); Monocytes % 5.6 %; Neutrophils % 88.3 %; Nucleated Red Blood Cells % 0 %; Platelet Count 290 10^3/cmm (130-400); Red Blood Count 4.98 10^6/uL (4.1-5.3); Red Cell Distribution Width 13.5 % (12.1-15.1); White Blood Count 13.8 10^3/uL (4.0-10.0)
[2021-01-26] MEDS: sodium chloride 0.9% 1,000 ML 999 ML IV (10:16)
--- NOTE | 2021-01-26 10:22 | PC.PHAR ---
Addendum entered by Katya Paez 01/26/21 10:24: DOXYCYCLINE AND METOCLOPRAMIDE WAS WRITTEN ON 01/25/21 Original Note: PT WAS SEEN IN THE ED ON 01/25/21 PT STATES NOTHING HAS CHANGED ON HER MEDS SINCE SHE WAS HERE-PTS FAMILY STATES HE IS UNSURE IF THE PT GOT THE DOXYCYCLINE OR METOCLOPRAMIDE FILLED-CALLED [facility] THEY BOTH STATE THEY DIDNT FILL THE RX
[2021-01-26 10:34] LABS: HCG Qualitative Urine. Negative (Negative)
[2021-01-26 10:40] LABS: Amphetamines Screen Urine Negative (Negative); Barbiturates Screen Urine Positive (Negative); Benzodiazepines Screen Urine Negative (Negative); Cocaine Screen Urine Negative (Negative); Opiate Screen Urine Negative (Negative); PCP Screen Urine Negative (Negative); THC Screen Urine Negative (Negative)
[2021-01-26 10:47] LABS: Urine Appearance Clear (CLEAR); Urine Color Yellow (Yellow); pH Urine 8 (5-7)
[2021-01-26 10:48] LABS: Bilirubin Urine Neg (Negative); Blood Urine Neg (Negative); Glucose Urine UA Norm (Normal); Ketones Urine 2+ (Negative); Leukocyte Esterase Urine Negative (Negative); Nitrate Urine Negative (Negative); Protein Urine Neg (Negative); Sulfosalicylic Acid Urine Negative (Negative); Urobilinogen Urine Norm (Negative)
[2021-01-26] MEDS: iohexol 300 mg/mL 100 mL Btl IV ×2 (11:12→17:06)
--- NOTE | 2021-01-26 11:20 | PC.NURSE ---
NOTIFIED DR GARCIA THAT PATIENT TOXICOLOGY RESULTS SHOW POSITIVE FOR BARBITURATES.
[2021-01-26] MEDS: morphine 4 mg/mL SDV 1 mL 2 MG IVP (11:48)
[2021-01-26 12:21] LABS: Alanine Aminotransferase 6 U/L (0-33); Albumin Level 3.7 g/dL (3.5-5.2); Alkaline Phosphatase 50 IU/L (35-105); Anion Gap 13.8 (5-19); Aspartate Amino Transferase 8 U/L (0-32); Blood Urea Nitrogen 9 mg/dL (6-20); Calcium 7.9 mg/dL (8.5-10.5); Carbon Dioxide 22 mmol/L (22-29); Chloride 102 mmol/L (98-107); Creatine Phosphokinase 38 U/L (26-192); Globulin 2.7 g/dL (1.3-4.6); Glomerular Filtration Rate 171.8 mL/min (90-130); Glucose 111 mg/dL (65-115); Lipase 10 U/L (13-60); Osmolality Calculated 277 mOsm/kg (285-295); Potassium 3.8 mmol/L (3.5-5.1); Sodium 134 mmol/L (136-145); Total Bilirubin 0.2 mg/dL (0.15-1.2); Total Protein 6.4 g/dL (6.6-8.7)
[2021-01-26 12:22] LABS: Lactic Sepsis W/Reflex 1.2 mmol/L (0.5-2.2)
[2021-01-26] MEDS: promethazine 25 mg/mL SDV 1 mL IM (12:30)
--- NOTE | 2021-01-26 15:01 | PM.HP ---
Providers/Chief Complaint Admitting Physician: Miky Flores MD Primary Care Provider: Torito Mathis DO Chief Complaint: AMS History of Present Illness Tabitha Schaffer is a 45 year old female with no known past medical history: Migraine headaches presenting today with chief complaint of intractable headaches. She stated that her symptoms started 2 wks ago after her home exterior paint. Because of the strong smell, has been having frontal headaches. she has been seen at PCP clinic, ER . no iprovement with Tylenol & ibuprofen 2 g a day. Her headache is associated with projectile vomiting and nausea. her vision was blurred in first week she has not been able to sleep well because of this headache. He has been noticing night sweats, unintentional weight loss, endorsing poor intake. She is denying chest pain, shortness of breath. She noted abdominal bloating and swelling 6 to 8 months ago. Her bowel movements are alternating as well. No history of cancer. Today she experienced presyncope, not able to recall that event, however endorsing a fall. Diagnostics in the ER revealed mild confusion, 3 CT head were unremarkable, CT REVEALED concerning changes, 1. Large heterogeneous mass arising from the pelvis measures 20.0 cm transversely x 10.0 cm AP x 16.0 cm superior inferior. Favor this is probably arising from the RIGHT ovary. Malignancy is not excluded. 2. Moderate RIGHT hydroureteronephrosis secondary to a large pelvic mass causing obstruction at the pelvic brim. 3. Dilated tortuous RIGHT pelvic varicosities with fluid or soft tissue nodularity. Small amount of omental thickening is not excluded. This could be neoplastic or edema. 4. No adrenal mass. 5. No significant amount of ascites. Review of Systems Const: Reports: chills, body aches, change in appetite and change in weight Eyes: Reports: blurry vision ENMT: Denies: uvular edema Card: Denies: chest pain Resp: Denies: dyspnea GI: Reports: abdominal pain, nausea, vomiting and constipation : Denies: flank pain Musc: Denies: neck pain Skin/Breast: Reports: rash and skin swelling Neuro: Reports: headache(s) and behavioral changes; Denies: numbness in extremities or weakness in extremities Medications/Allergies Home Medications Medication Instructions Recorded Confirmed Last Taken Type albuterol sulfate 1 - 2 puff INHALATION Q4H PRN 01/21/21 01/26/21 Unknown History ondansetron HCl 4 mg PO Q8H PRN 01/21/21 01/26/21 01/25/21 15:00 History Motrin Liquid Gels 2 cap PO PRN 01/25/21 01/26/21 01/25/21 History jscksroqzu-dsdqhnwuolrtt-ipwt 1 tab PO Q6H PRN 01/25/21 01/26/21 01/25/21 14:00 History ibuprofen 400 mg PO PRN 01/25/21 01/26/21 Unknown History metoclopramide HCl 10 mg PO Q6H PRN #20 tab 01/25/21 01/26/21 Unknown Rx naproxen sodium 440 mg PO PRN PRN 01/25/21 01/26/21 Unknown History naproxen-diphenhydramine [Aleve PM] 2 tab PO PRN PRN 01/25/21 01/26/21 Unknown History propranolol 20 mg PO BID 01/25/21 01/26/21 Unknown History sumatriptan succinate 50 - 100 mg PO .ONSET OF MIGRAINE 01/25/21 01/26/21 01/24/21 History MDD 200MG doxycycline hyclate 100 mg PO BID 01/26/21 01/26/21 Unknown History Allergies Allergy/AdvReac Type Severity Reaction Status Date / Time No Known Allergies Allergy Verified 01/26/21 10:22 PFSH Acute PFSH: Medical History (Updated 01/26/21 @ 15:01 by Miky Flores MD) Tick bite Surgical History (Updated 01/26/21 @ 15:03 by Miky Flores MD) H/O tubal ligation History of section Family History (Updated 01/26/21 @ 15:03 by Miky Flores MD) Other Family history non-contributory Social History (Updated 01/26/21 @ 15:03 by Miky Flores MD) Smoking and tobacco status: never smoked Alcohol intake: never Substance/Drug Use: never Housing: House Female Reproductive History: Date of last menstrual period: 01/16/21 Vitals/I&O/Wt Last Vital Signs Temp 97.7 F 01/26/21 09:44 Pulse 67 01/26/21 12:31 Resp 28 H 01/26/21 12:31 BP 121/89 01/26/21 11:23 Pulse Ox 98 01/26/21 12:31 01/26/21 01/26/21 01/26/21 06:59 14:59 22:59 Intake Total 1000 / 1000 Balance 1000 / 1000 Weight last 48 hrs Weight 65.317 kg Physical Exam Narrative: EXAM NARRATIVE: Young female who was laying comfortably in her bed with her eyes closed Normal sinus rhythm no murmur appreciated Distended abdomen, swelling extending from mid epigastric to right flank, non tender No acute respiratory distress saturating well on Room air No active neurological deficits Patient does seem drowsy EOMI, PERRLA No cerebellar signs Patient dehydrated Facial flushing noted Data : 01/26/21 10:08 01/26/21 11:47 A&P Assessment and plan (1) Migraine: Status: Acute Qualifiers: Intractability: not intractable Migraine type: without aura Status migrainosus presence: with status migrainosus Qualified Code(s): G43.001 - Migraine without aura, not intractable, with status migrainosus (2) Headache: Status: Acute (3) Altered mental status: Status: Acute (4) Hydronephrosis of right kidney: Status: Acute Additional A&P Information Intractable vomiting Ct head unremarkable her Sx are related to GI general office dispatcher pathology, zofran is the best choice would use deacadron one time dose no signs of pneumonia vaccinated with j&j ct abd pelvis significant findings wants to f/u with general office dispatcher oncology and does not want any investigation studies here Ppatient is currently admitted for management of headache and mild confusion chk tsh b12 UA normal I will give her a dose of Toradol at this point I would get head MRI, because of confusion with her migraine. no stroke like symptoms Pelvic mass with hydronephrosis kidney function nml yaritza wants to go to [place], refused biospy here [place] 125 sent Regular diet DVT Lovenox Full code Attestations Medical Necessity Statement*: anticipating discharge within 48 hours Time Spent in Patient Care: Greater than 35 minutes Coding Level of Care Code Acute Vice Investigator for Chg Fwd Diagnoses Migraine G43.001 Intractability: not intractable Migraine type: without aura Status migrainosus presence: with status migrainosus Headache R51.9 Altered mental status R41.82 Hydronephrosis of right kidney N13.30
--- NOTE | 2021-01-26 15:06 | CTR_ITS ---
PROCEDURE INFORMATION: Exam: CT Chest With Contrast; Diagnostic Exam date and time: 01/26/2021 3:06 PM Age: 45 years old Clinical indication: Fever; Additional info: Malignancyy of ovaries TECHNIQUE: Imaging protocol: Diagnostic computed tomography of the chest with contrast. Radiation optimization: All CT scans at this facility use at least one of these dose optimization techniques: automated exposure control; mA and/or kV adjustment per patient size (includes targeted exams where dose is matched to clinical indication); or iterative reconstruction. Contrast material: OMNI 300; Contrast volume: 95 ml; Contrast route: INTRAVENOUS (IV); COMPARISON: CT abdomen pelvis w con* [id number] 01/26/2021 11:10 AM RADIATION DOSE METRICS: Total DLP (mGy-cm): 381.75 FINDINGS: Lungs: There are some calcified granulomas in the left lung. There is some scarring or areas of platelike atelectasis in the right middle lobe and left upper lobe. No pneumonia is identified. There is a 3 mm sized noncalcified nodule right upper lobe on image number 15 of uncertain significance. Given the history of potential malignancy, follow-up is suggested. Pleural spaces: Unremarkable. No pneumothorax. No pleural effusion. Heart: Unremarkable. No cardiomegaly. No pericardial effusion. Aorta: Unremarkable. No aortic aneurysm. Lymph nodes: There are calcified left hilar and mediastinal lymph nodes in keeping with old granulomatous disease. There is no evidence of lymphadenopathy. Bones/joints: There is some old healed posterior left rib fractures. Soft tissues: Unremarkable. CT/CT chest w con* [id number] IMPRESSION: 1. Old granulomatous disease. 2. Bilateral atelectasis or scarring. 3. No focal pneumonia is identified. 4. Small nonspecific right upper lobe nodule. Follow-up suggested. Radiation Dose CTDIVOL = (mGy): DLP = 381.75 (mGy-cm)
[2021-01-26 15:58] LABS: CA 125 32.5 U/mL (0-35); Procalcitonin 0.02 ng/mL (0-0.5)
--- NOTE | 2021-01-26 16:39 | PC.NURSE ---
Admit Note Patient admitted to med/surg from ER via stretcher. Covering service notified. Patient presents with headache and AMS. Orders reviewed & will continue to monitor. Patient and/or human resources representative oriented to environment, equipment, and informed of the following as found in the admission booklet: patient rights & responsibilities, visitor policy, hand and respiratory hygiene practice. Other education includes: calling fro assistance, not getting out of bed alone, and telemetry. Patient and/or human resources representative states verbal understanding.
[2021-01-26] MEDS: ketorolac 30 mg/mL INJ 15 MG IVP (16:45)
[2021-01-26] MEDS: dexamethasone 4 mg Tablet 6 MG PO (16:46)
[2021-01-26 18:52] LABS: Prolactin 19.89 ng/mL (4.8-23.3)
[2021-01-27] VITALS (10 sets, daily range): BP systolic 100–129; BP diastolic 64–79; PULSE 56–86; RESP 16–18; TEMP 36.3–37.5; O2SAT 96–98
[2021-01-27] MEDS: acetaminophen 500 mg Tablet PO (05:41)
[2021-01-27 05:55] LABS: Basophils % 0.2 %; Eosinophils % 0.5 %; Hematocrit 39.3 % (37.0-47.0); Hemoglobin 12.8 g/dL (11.5-15.3); Lymphocytes # 1.4 10^3/uL (0.8-4.8); Lymphocytes % 16.1 %; Mean Corpuscular HGB Conc 32.6 g/dL (30.0-36.0); Mean Corpuscular Hemoglobin 28.7 pg (28.0-34.0); Mean Corpuscular Volume 88.1 fl (81-99); Mean Platelet Volume 9.4 fL (7.4-10.4); Monocytes # 0.8 10^3/uL (0.2-0.9); Monocytes % 9.3 %; Neutrophils # 6.35 10^3/uL (1.8-7.7); Neutrophils % 73.4 %; Nucleated Red Blood Cells % 0 %; Platelet Count 248 10^3/cmm (130-400); Red Blood Count 4.46 10^6/uL (4.1-5.3); Red Cell Distribution Width 13.2 % (12.1-15.1); White Blood Count 8.6 10^3/uL (4.0-10.0)
[2021-01-27 06:42] LABS: Alanine Aminotransferase 8 U/L (0-33); Albumin Level 3.6 g/dL (3.5-5.2); Alkaline Phosphatase 48 IU/L (35-105); Anion Gap 11.8 (5-19); Aspartate Amino Transferase 8 U/L (0-32); Blood Urea Nitrogen 8 mg/dL (6-20); Calcium 8.5 mg/dL (8.5-10.5); Carbon Dioxide 23 mmol/L (22-29); Chloride 105 mmol/L (98-107); Globulin 2.4 g/dL (1.3-4.6); Glomerular Filtration Rate 132.8 mL/min (90-130); Glucose 93 mg/dL (65-115); Osmolality Calculated 280 mOsm/kg (285-295); Potassium 3.8 mmol/L (3.5-5.1); Sodium 136 mmol/L (136-145); Thyroid Stimulating Hormone 2.02 uIU/mL (0.27-4.20); Total Bilirubin 0.3 mg/dL (0.15-1.2); Vitamin B12 541 pg/mL (232-1245)
[2021-01-27] MEDS: morphine 4 mg/mL SDV 1 mL IVP (07:49)
[2021-01-27] MEDS: sennosides-docusate Tablet 1 TAB PO (07:49)
--- NOTE | 2021-01-27 09:27 | PC.CHAP ---
Pastoral Care Encounter/Spiritual Assessment Type of Contact [] Declined superintendent automotive visit [] Patient/Family/Request visit [] Outpatient visit [] Follow-up visit [] Physician referral [] Code/Alert [x] Routine visit [] Staff referral [] Actively dying [x] Patient sleeping [] Family support [] [] Out of room [] Palliative care [] [] Receiving care in room [] Pre-surgical visit [] Trauma [] Long length of stay [] ICU visit [] Other: Relational/Emotional Strength [] Patient feels connected with others/family/visitors/staff [] Distress [] Loneliness/isolation [] Abandonment Spirituality of Patient [] Person of Kimberly [] Attends Restorationist of their Kimberly [] Believes in Prayer [] Reads Bible or Moravian materials [] There are Spiritual issues to be addressed Environmental Compliance Officer Interventions [] Prayer [] Active listening [] Non-anxious presence [] Spiritual/emotional support [] Crisis/trauma care [] Spiritual counseling [] Bereavement support [] Provided bereavement packet [] Provided Bible/devotional materials [] Provided toy/stuffed animal, coloring book to patient or family member [] Provided Communion [] Anointing/[place] [] Salvation [] Completed spiritual assessment [] Other: Impact on Illness or Injury [] Angry [] Fearful [] Anxious [] Often cries [] Exhaustion [] Unable to work [] Unable to attend scientologist [] Unable to walk/stand [] Unable to read [] Unable to drive [] Unable to eat/drink [] Unable to sleep [] Unable to be with family [] Patient intubated [] Other: Summary Pt alseep. There was SO in room and only spoke briefly so not to wake Pt Time spent with patient 1m
[2021-01-27] MEDS: ketorolac 30 mg/mL INJ 15 MG IVP (11:18)
[2021-01-27] MEDS: acetaminophen-codeine 300-30mg Tablet 1 TAB PO (11:19)
--- NOTE | 2021-01-27 13:45 | PM.PN ---
Subjective Subjective: Interval history: Patient is due for MRI of head for her migraines with confusion I did talk with [facility], he has accepted her however [facility] does not have any beds for now, did talk with her , he prefers to have hospital to hospital transfer Patient is complaining of headache received Tylenol 3 and Ativan before MRI Concern for rebound headache No active signs of meningitis No overnight event CT chest showing small nonspecific right upper lobe nodule Does not meet Meigg's syndrome criteria Vitals/I&O/Wt Last Vital Signs Temp 98.5 F 01/27/21 11:53 Pulse 68 01/27/21 11:53 Resp 16 01/27/21 11:53 BP 126/79 01/27/21 11:53 Pulse Ox 97 01/27/21 11:53 01/26/21 01/27/21 01/27/21 22:59 06:59 14:59 Intake Total 240 / 1240 Balance 240 / 1240 Weight last 48 hrs Weight 65.771 kg Weight 65.317 kg Physical Exam Narrative: EXAM NARRATIVE: Patient was laying comfortable complaining headache in a dark room, at the bedside EOMI, PERRLA No neurological deficit Awake alert oriented x3 GCS 15 Appears anxious Abdominal mass, mild tenderness to palpation, no signs of peritonitis Patient able to void urine No recurrence of syncopal events, No acute respite distress saturating well on room air Data : 01/27/21 05:26 01/27/21 05:26 A&P Assessment and plan (1) Migraine: Status: Acute Qualifiers: Intractability: not intractable Migraine type: without aura Status migrainosus presence: with status migrainosus Qualified Code(s): G43.001 - Migraine without aura, not intractable, with status migrainosus (2) Headache: Status: Acute (3) Altered mental status: Status: Acute (4) Ovarian mass, right: Status: Acute (5) Hydronephrosis of right kidney: Status: Acute Additional A&P Information Intractable headache MRI head at 12:[address] head unremarkable No active signs of meningitis Give her Tylenol 3 Patient does endorse improvement of headache with opioids however my concern is rebound headache as she has been using high doses of Tylenol and improving at home Judicious use of opioids Patient endorsed night sweats, hot flashes, weight loss however no back pain Altered mental status Etiology is not clear however seems secondary to taking multiple medications at home for treatment of her headache We will follow up with MRI She does not have typical findings of meningitis CT chest no active pneumonia or pleural effusion B12, TSH normal UA unremarkable Ovarian mass No active pleural effusion, ascites to suggest Meigg'ssyndrome Compressing aorta with right hydronephrosis Creatinine normal patient able to void without any difficulty I did speak with Dr. Castaneda at [facility](office #[phone]) who has accepted her I have talked with the transfer line of [facility] as well they will call us with the bed number once a bed is available however it might take a day or 2 is wanting hospital to hospital transfer CA-125 sent Full code Regular diet Considering history of cancer with compression of aorta I would go ahead and start her on therapeutic dose of Lovenox in order to prevent DVT Attestations Medical Necessity Statement*: Awaiting transfer to [facility] Time Spent in Patient Care: Greater than 35 minutes Coding Level of Care Code Acute Returned Telephone Equipment Appraiser for Chg Fwd Diagnoses Migraine G43.001 Intractability: not intractable Migraine type: without aura Status migrainosus presence: with status migrainosus Headache R51.9 Altered mental status R41.82 Ovarian mass, right N83.8 Hydronephrosis of right kidney N13.30
[2021-01-27] MEDS: LORazepam 2 mg/mL INJ 1 mL 1 MG IVP (14:05)
[2021-01-27] MEDS: enoxaparin 60 mg/0.6 mL Syringe SUBCUT (14:10)
[2021-01-27 15:05] LABS: SARS Covid-2 Antigen Negative (Negative)
[2021-01-27] MEDS: dextrose 5%-sod chloride 0.9% 1,000 ML 30 ML IV (16:16)
--- NOTE | 2021-01-27 17:52 | MR_ITS ---
WS: [id number] MRI BRAIN WITHOUT CONTRAST HISTORY: Migraine with confusion COMPARISON: None available. TECHNIQUE: Sagittal T1, coronal T2, axial T2 and diffusion imaging submitted. The remaining examinati on was canceled due to confusion and motion. No evidence for an acute infarct is identified. Cardoso-white matter differentiation is normal. No mass effect. No inferior displacement of the cerebellar tonsils. There is very slight ectopia the cerebell ar tonsils but no Chiari malformation. Paranasal sinuses: Clear. Mastoid air cells: Normal. Calvarium and scalp: Intact. MR/MR head wo con* [id number] IMPRESSION: 1. Very limited MRI evaluation of the brain due to motion and confusion. 2. No acute ischemic events are apparent. 3. No hydrocephalus or significant edema. 4. Anticipate MRI brain completion after patient's confusion receives.
[2021-01-27] MEDS: oxyCODONE 5 mg IR Tab/Cap PO (18:28)
--- NOTE | 2021-01-27 22:00 | PM.TDS ---
Transfer Summary Providers Date of Admission: 01/26/21 13:08 Date of Discharge: 01/27/21 Attending Provider at Admission: Miky Flores MD Attending Provider at Transfer: Miky Flores MD Primary Care Provider: Torito Mathis DO Anticipated Date of Transfer: Anticipated date of transfer: 02/01/21 Receiving Facility & Provider: Receiving Provider: [] Receiving facility: [] Diagnoses at Discharge Discharge Diagnosis (1) Migraine: Status: Inactive Qualifiers: Intractability: not intractable Migraine type: without aura Status migrainosus presence: with status migrainosus Qualified Code(s): G43.001 - Migraine without aura, not intractable, with status migrainosus (2) Headache: Status: Acute (3) Altered mental status: Status: Acute (4) Ovarian mass, right: Status: Acute (5) Hydronephrosis of right kidney: Status: Acute Reason for Visit Reason for Visit: AMS Hospital Course Hospital Course patient was admitted for management of headache and encephalopathy In the ER CT abdomen revealed pelvic mass was found which was compressing her aorta, patient remained hemodynamically stable during her hospitalization CA [address] scan MRI was unremarkable. No active signs of sepsis were identified, her headache improved with opioids to some extent, she was not encephalopathic during her stay in the hospital She was transferred to [facility] for work-up of gynecological mass Dr. Castaneda accepted her transfer Patient and her both declined work-up at our hospital and agreed with the transfer. 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( biopsy pending) Physical Exam Narrative: EXAM NARRATIVE: Patient was laying comfortable complaining headache in a dark room, at the bedside EOMI, PERRLA No neurological deficit Awake alert oriented x3 GCS 15 Appears anxious Abdominal mass, mild tenderness to palpation, no signs of peritonitis Patient able to void urine No recurrence of syncopal events, No acute respite distress saturating well on room air No active signs of meningitis TS Data Data Completed and Pending: Completed Studies During Hospitalization Category Date Time Status CT abdomen pelvis w con* [id number] Urge nt Cat Scan 01/26/[address] chest w con* [id number] Routine Cat Scan 01/26/21 15:[address] head wo con* [id number] Stat Cat Scan 01/26/21 09:49 Completed MR head wo con* [id number] Routine MRI 01/27/21 17:52 Completed Vitals: Last Vital Signs Temp 99.5 F 01/27/21 20:00 Pulse 86 01/27/21 22:09 Resp 18 01/27/21 22:09 BP 129/77 01/27/21 20:00 Pulse Ox 97 01/27/21 22:09 TS Medications Medications Home Medications albuterol sulfate 1 - 2 puff INHALATION Q4H PRN 01/21/21 [History Confirmed 01/26/21] ondansetron HCl 4 mg PO Q8H PRN 01/21/21 [History Confirmed 01/26/21] Motrin Liquid Gels 2 cap PO PRN 01/25/21 [History Confirmed 01/26/21] cfwyqnsamj-dwrgrtjmenawt-bbtv 1 tab PO Q6H PRN 01/25/21 [History Confirmed 01/26/21] ibuprofen 400 mg PO PRN 01/25/21 [History Confirmed 01/26/21] metoclopramide HCl 10 mg PO Q6H PRN #20 tab 01/25/21 [Rx Confirmed 01/26/21] naproxen sodium 440 mg PO PRN PRN 01/25/21 [History Confirmed 01/26/21] naproxen-diphenhydramine [Aleve PM] 2 tab PO PRN PRN 01/25/21 [History Confirmed 01/26/21] propranolol 20 mg PO BID 01/25/21 [History Confirmed 01/26/21] sumatriptan succinate 50 - 100 mg PO .ONSET OF MIGRAINE MDD 200MG 01/25/21 [History Confirmed 01/26/21] doxycycline hyclate 100 mg PO BID 01/26/21 [History Confirmed 01/26/21] Discharge Plan Discharge Patient Disposition: Xfer Short-Term Hosp Condition: Stable Prescriptions: No Action sumatriptan succinate 100 mg tablet 50 - 100 mg PO .ONSET OF MIGRAINE MDD 200MG RF: 0 lbuawmkgby-urjzfbsnndwrn-smen 50-325-40 mg tablet 1 tab PO Q6H PRN (Reason: Migraine Headache) RF: 0 naproxen sodium 220 mg Tablet 440 mg PO PRN PRN (Reason: UNKNOWN) RF: 0 ibuprofen 200 mg Tablet 400 mg PO PRN RF: 0 propranolol 20 mg tablet 20 mg PO BID RF: 0 Aleve PM 220-25 mg Tablet 2 tab PO PRN PRN (Reason: UNKNOWN) RF: 0 Motrin Liquid Gels 2 cap PO PRN RF: 0 metoclopramide HCl 10 mg tablet 10 mg PO Q6H PRN (Reason: nausea and vomiting) Qty: 20 RF: 0 doxycycline hyclate 100 mg capsule 100 mg PO BID RF: 0 ondansetron HCl 4 mg tablet 4 mg PO Q8H PRN (Reason: Nausea And Vomiting) RF: 0 albuterol sulfate 90 mcg/actuation HFA aerosol inhaler 1 - 2 puff INHALATION Q4H PRN (Reason: Shortness Of Breath) RF: 0 Discharge Orders: Transfer Out of Facility (Order); Ordered 01/27/21 Ordered By: Miky Flores Referrals: Torito Mathis DO [Primary Care Provider] - Discharge Diet: Cardiac Discharge Activity: Resume usual activity Patient Instructions: Opioid Safety Transfer Attestations Time Spent in Transfer Care*: less than 30 min Quality Metrics Clinical Quality Measures: During this hospital stay, did patient experience: None Coding Level of Care Code Acute Public Space Attendant for g Fwd Diagnoses Migraine G43.001 Intractability: not intractable Migraine type: without aura Status migrainosus presence: with status migrainosus Headache R51.9 Altered mental status R41.82 Ovarian mass, right N83.8 Hydronephrosis of right kidney N13.30
== END 2021-01-27 20:00 | disposition short-term general hospital (02) ==
LOC: ER 14:16 → MEDSURG 01-27 09:00
PROVIDERS: Admitting Provider Internal Medicine; Emergency Provider Family Medicine; PCP Internal Medicine; Visit Provider Internal Medicine
DX: G43.001 Migraine without aura, not intractable, with status migrainosus (principal); R51.9 Headache, unspecified; R41.82 Altered mental status, unspecified; N13.30 Unspecified hydronephrosis; N83.8 Other noninflammatory disorders of ovary, fallopian tube and broad ligament
CPT/HCPCS: 36415; 36600; 70450; 70551; 71260; 74177; 80051; 80053; 80306; 81003; 81025; 82330; 82550; 82607; 82805; 83605; 83690; 84145; 84146; 84443; 85025; 86304; 87426; 93005; 96361; 96372; 96374; 96375; 99285; G0378; J1650; J1885; J2060; J2270; J2550; J7030; J8540; Q9967